=== PATIENT | male | born 1970 | race Two or more races ===

== ENCOUNTER 2019-10-02 20:52 | Inpatient (IN) | payer OTHER ==
[~2019-10-02] VITALS: Ht 167.6 cm; Wt 92.3 kg
[2019-10-02 22:17] LABS: Basophils # (auto) 0 10 ^3/uL (0-0.2); Basophils % (auto) 0.8 % (0.0-2.0); Eosinophils # (auto) 0.2 10 ^3/uL (0-0.8); Eosinophils % (auto) 4.3 % (0.0-7.0); Hematocrit 35.3 % (41.0-53.0); Hemoglobin 11.8 g/dL (13.5-17.5); Lymphocytes # (auto) 1.4 10 ^3/uL (0.4-5.4); Lymphocytes % (auto) 28.4 % (10.0-50.0); Mean Corpuscular Hemoglobin 31.6 pg (28.0-32.0); Mean Corpuscular Hgb Conc. 33.3 g/dL (32.0-36.0); Mean Corpuscular Volume 94.9 fL (80.0-100.0); Monocytes # (auto) 0.8 10 ^3/uL (0-1.3); Monocytes % (auto) 15.7 % (0.0-12.0); Neutrophils # (auto) 2.4 10 ^3/uL (1.6-8.6); Neutrophils % (auto) 50.8 % (37.0-80.0); Nucleated Red Blood Cells % 0.1 %; Platelet Count (auto) 181 10^3/uL (140-450); Red Blood Cells 3.72 10^6/uL (4.5-5.90); Red Cell Distribution Width 15.8 % (11.8-14.3); White Blood Cell 4.8 10^3/uL (4.4-10.8)
[2019-10-02 22:30] LABS: INR 1.4 (0.9-1.15); Partial Thromboplastin Time 29.1 sec (23.64-32.05)
[2019-10-02 22:36] LABS: Alanine Aminotransferase 21 U/L (16-61); Albumin 2.4 g/dL (3.4-5.0); Amylase 48 U/L (25-115); Anion Gap 4 (5-15); Aspartate Aminotransferase 39 U/L (15-37); BUN/Creatinine Ratio 23.3; Blood Urea Nitrogen 14 mg/dL (7-18); Calcium 8.6 mg/dL (8.5-10.1); Carbon Dioxide 30 mmol/L (21-32); Chloride 100 mmol/L (98-107); GFR African American 185 mL/min; GFR Non-African American 153 mL/min; Glucose 118 mg/dL (74-106); Lipase 295 U/L (73-393); Magnesium 2.3 mg/dL (1.6-2.6); Potassium 4.2 mmol/L (3.5-5.1); Sodium 134 mmol/L (136-145)
[2019-10-02 22:42] LABS: Alkaline Phosphatase 193 U/L (45-117); Bilirubin, Total 1.1 mg/dL (0.2-1.0); Total Protein 7.6 g/dL (6.4-8.2)
[2019-10-03] MEDS ORDERED: chlordiazePOXIDE HCL 25 MG CAP PO PRN (04:45)
[2019-10-03] MEDS ORDERED: cloNIDine HCL 0.1 MG TAB PO PRN (04:45)
[2019-10-03] MEDS ORDERED: ONDANSETRON HCL 4 MG/2 ML VIAL IV PRN (04:45)
[2019-10-03] MEDS ORDERED: MORPHINE SULF INJ 2 MG/ML SYRINGE 1ML IV PRN (04:45)
[2019-10-03] MEDS ORDERED: LORazepam 0.5 MG TAB PO PRN (04:45)
[2019-10-03] MEDS ORDERED: ACETAMINOPHEN 325 MG TAB PO PRN (04:45)
[2019-10-03] MEDS ORDERED: HYDROcodone-ACET 5/325MG TAB PO PRN (04:45)
[2019-10-03] MEDS ORDERED: TEMAZEPAM 15 MG CAP PO PRN (04:45)
[2019-10-03] MEDS ORDERED: DOCUSATE SOD 100 MG CAP PO PRN (04:45)
[2019-10-03 05:59] LABS: Basophils # (auto) 0 10 ^3/uL (0-0.2); Basophils % (auto) 0.7 % (0.0-2.0); Eosinophils # (auto) 0.2 10 ^3/uL (0-0.8); Eosinophils % (auto) 4.4 % (0.0-7.0); Hematocrit 34.5 % (41.0-53.0); Hemoglobin 11.4 g/dL (13.5-17.5); Lymphocytes # (auto) 1.5 10 ^3/uL (0.4-5.4); Lymphocytes % (auto) 34.6 % (10.0-50.0); Mean Corpuscular Hemoglobin 31.1 pg (28.0-32.0); Mean Corpuscular Volume 94.4 fL (80.0-100.0); Monocytes # (auto) 0.7 10 ^3/uL (0-1.3); Monocytes % (auto) 15.1 % (0.0-12.0); Neutrophils % (auto) 45.2 % (37.0-80.0); Nucleated Red Blood Cells % 0.1 %; Platelet Count (auto) 165 10^3/uL (140-450); Red Blood Cells 3.65 10^6/uL (4.5-5.90); White Blood Cell 4.4 10^3/uL (4.4-10.8)
[2019-10-03 06:19] LABS: Calcium 8.5 mg/dL (8.5-10.1); Potassium 3.6 mmol/L (3.5-5.1)
[2019-10-03 07:29] LABS: Urine Bacteria NONE SEEN /hpf (None Seen); Urine Blood Negative /uL (Negative); Urine Mucus FEW (None Seen); Urine Specific Gravity 1.025 (1.001-1.035); Urine WBC 1 /hpf (0 - 3)
--- NOTE | 2019-10-03 10:35 | NUR ---
Returned Call Returned call for WEB MARKETING COORDINATOR to obtain report, left message with Wanda.
--- NOTE | 2019-10-03 11:09 | NUR ---
Patient Arrived to Unit Patient arrived to unit from ER. No signs of distress at this time. Respirations even and unlabored. Bed is locked and in lowest position, call light within reach. Patient denies pain at this time, will continue to monitor.
--- NOTE | 2019-10-03 11:10 | NUR ---
Called ER Called ER for report. No answer at this time, will reattempt.
--- NOTE | 2019-10-03 11:46 | NUR ---
Report received Received report from SLIP BRIDGE OPERATOR.
[2019-10-03 14:13] VITALS: BP 139/104
[2019-10-03] MEDS ORDERED: FOLI1TAB6 PO (14:39)
[2019-10-03] MEDS ORDERED: SPIR100T4 PO (14:39)
[2019-10-03] MEDS ORDERED: FURO40TA4 PO (14:39)
[2019-10-03] MEDS ORDERED: PROP10TA57 PO (14:39)
[2019-10-03] MEDS ORDERED: FUROSEMIDE 40 MG/4 ML VIAL IV ONE (15:30)
[2019-10-03] MEDS ORDERED: SPIRONOLACTONE 25 MG TAB PO ONE (15:30)
--- NOTE | 2019-10-03 16:48 | NUR ---
at Station Dr. Sawyer at station discussing patient's plan of care. No new orders at this time.
[2019-10-03 17:00] VITALS: BP 143/100
--- NOTE | 2019-10-03 17:54 | NUR ---
Received call from US Received call from US regarding paracentesis on 10/04. Per Ángela, would like to know if Dr. Sawyer would like to order fluid cultures on drainage post paracentesis since patient had last paracentesis at another facility. Will follow up with Dr. Sawyer.
--- NOTE | 2019-10-03 17:54 | NUR ---
Ronald MAYA Left message with Dr. Rupal Sawyer regarding possible fluid cultures from paracentesis drainage on Saturday. Will await orders.
--- NOTE | 2019-10-03 18:37 | NUR ---
Reassessed BP Blood pressure:146/99
--- NOTE | 2019-10-03 19:13 | NUR ---
Closing Shift Note Report given to Isaias MUIR RN.
[2019-10-03 22:00] VITALS: BP 154/74
[2019-10-04 05:00] VITALS: BP 129/93
[2019-10-04 08:00] VITALS: BP 146/105
--- NOTE | 2019-10-04 08:00 | NUR ---
ASSESSMENT NOTE PT IS ALERT ORIENTED X4, SITTING AT THE SIDE OF TH EBED, AMBULATE NEEDED, PT HAS VERY LARGE DISTENDED ABDOMEN , WITH A SHINY SKIN DUE TO ASCITES, PT IS LOOKING FORWARD TO HAVE THE PARACENTESIS TOMORROW SO HE CAN GO HOME SOON, PAIN 0/10, CONTINUE IN A GOOD SPIRIT, CALL LGHT WITHIN REACH
[2019-10-04 09:00] VITALS: BP 123/94
[2019-10-04] MEDS: SPIRONOLACTONE 25 MG TAB PO SCH (09:48)
[2019-10-04] MEDS: FUROSEMIDE 40 MG/4 ML VIAL IV SCH (09:49)
[2019-10-04] MEDS ORDERED: SPIRONOLACTONE 25 MG TAB PO SCH (10:00)
[2019-10-04 13:00] VITALS: BP 133/98
--- NOTE | 2019-10-04 15:20 | NUR ---
DR CHRISTOPHER AT BED SIDE FOLLOWING UP ON PT, PT DENIES, PAIN, NAUSEA OR VOMITING, DR CHRISTOPHER INFORM PT OF PARACENTESES TOMORROW, PT VERBALIS UNDERSTANDING
[2019-10-04] MEDS ORDERED: PHYTONADIONE(VitK) ORAL Susp 10mg/10ml(1mg/ml) PO ONE (15:30)
[2019-10-04 17:00] VITALS: BP 135/99
[2019-10-04] MEDS ORDERED: Ensure HIGH Protein Chocolate 8oz Bottle PO SCH (18:00)
--- NOTE | 2019-10-04 18:15 | NUR ---
PT IS EATING DINNER, NO DISTRESS NOTED, CONTINUE MONITORING
--- NOTE | 2019-10-04 19:30 | NUR ---
Opening Shift Note Assumed care of patient, awake and alert. A&O x4. Patient sitting on the side of the bed. No S/S of distress/SOB or pain. Safety measures maintained by keeping the bed locked in lowest position, 2 side rails up, personal items and call light within reach. Instructed on POC and to call for assist PRN, will continue to monitor for changes Q1hr and PRN.
[2019-10-04 21:00] VITALS: BP 133/96
--- NOTE | 2019-10-05 | NUR ---
NPO at midnight
[2019-10-05 04:27] VITALS: BP 133/90
[2019-10-05 06:20] LABS: Basophils # (auto) 0 10 ^3/uL (0-0.2); Basophils % (auto) 0.4 % (0.0-2.0); Eosinophils # (auto) 0.1 10 ^3/uL (0-0.8); Eosinophils % (auto) 2.8 % (0.0-7.0); Hematocrit 33.4 % (41.0-53.0); Hemoglobin 10.8 g/dL (13.5-17.5); Lymphocytes # (auto) 1.2 10 ^3/uL (0.4-5.4); Lymphocytes % (auto) 25.8 % (10.0-50.0); Mean Corpuscular Hemoglobin 30.6 pg (28.0-32.0); Mean Corpuscular Hgb Conc. 32.5 g/dL (32.0-36.0); Mean Corpuscular Volume 94.3 fL (80.0-100.0); Monocytes # (auto) 0.8 10 ^3/uL (0-1.3); Monocytes % (auto) 16.1 % (0.0-12.0); Neutrophils # (auto) 2.7 10 ^3/uL (1.6-8.6); Neutrophils % (auto) 54.9 % (37.0-80.0); Nucleated Red Blood Cells % 0.1 %; Platelet Count (auto) 146 10^3/uL (140-450); Red Blood Cells 3.54 10^6/uL (4.5-5.90); Red Cell Distribution Width 15.9 % (11.8-14.3); White Blood Cell 4.8 10^3/uL (4.4-10.8)
[2019-10-05 06:32] LABS: INR 1.35 (0.9-1.15)
[2019-10-05 06:38] LABS: Calcium 8.4 mg/dL (8.5-10.1)
[2019-10-05 08:00] VITALS: BP 123/94
--- NOTE | 2019-10-05 08:00 | NUR ---
ASSESSMENT NOTE PT IS ALERT ORIENTED X4, SITTING AT THE SIDE OF THE BED, AMBULATE NEEDED, PT HAS VERY LARGE DISTENDED ABDOMEN , WITH A SHINY SKIN DUE TO ASCITES, PT IS AWARE OF THE PARACENTESIS TODAY, PAIN 0/10, , CALL LIGHT WITHIN REACH
[2019-10-05 09:00] VITALS: BP 137/88
[2019-10-05] MEDS: SPIRONOLACTONE 25 MG TAB PO SCH (09:27)
[2019-10-05] MEDS: FUROSEMIDE 40 MG/4 ML VIAL IV SCH (09:27)
[2019-10-05 09:31] LABS: Hepatitis B Surface Antibody Negative
[2019-10-05 10:07] LABS: Hepatitis A Total Antibody Positive
--- NOTE | 2019-10-05 10:15 | NUR ---
PT IN ULTRASOUND FOR A PARACENTESIS BY DR JOEL. VS 134/40-146-15-96% 1030: 134/34-992-81-98%. SPECIMEN SENT TO PATHOLOGY.
[2019-10-05 10:42] LABS: Hepatitis B Surface Antigen Negative (Negative)
[2019-10-05 10:43] LABS: Hepatitis C Antibody Negative (Negative)
[2019-10-05 10:44] LABS: Hepatitis B Core Total AB Negative
[2019-10-05] MEDS ORDERED: ALBUMIN 25% 50 ML IV ONE ×2 (11:15)
--- NOTE | 2019-10-05 11:26 | NUR ---
120/[id number]%.13,700 ML OF FLUID REMOVED. PT TOLERATED WELL. ALBUMIN ORDERED.
--- NOTE | 2019-10-05 11:45 | NUR ---
PT IS BACK TO HIS ROOM, APPEAR TIRED, WARM TO TOUCH, AND TACHYCARDIA, ABDOMEN ALMOST BACK TO NORMAL GIRTH, PT HAS DRY HEAVES, NOTICE THAT HIS VICE WEEK, STATED I LOST MY VOICE> OXYGEN APPLIED FOR COMFORT, FOLLOWED BY ZOFRAN IV PUSH, PT IS SITTING AT THE SIDE OF THE BED, REFUSED TO LAY DOWN, CALL LIGHT WITHIN REACH
--- NOTE | 2019-10-05 12:15 | NUR ---
DR CHRISTOPHER AT BED SIDE WITH DISCHARGE HOME INSTRUCTION, PT WILL KEEP HIS SCHEDULE APPOINTMENT WITH DR DEMPSEY IN ONE MONTH, AND HE NEED TO FOLLOW UP WITH DR ALEJANDRO GARRETT IN ONE WEEK REGARDING PARACENTESIS CULTURE, PT VERBALIS UNDERSTANDING
[2019-10-05 13:00] VITALS: BP 115/76
[2019-10-05 14:37] VITALS: BP 137/88
--- NOTE | 2019-10-05 14:55 | NUR ---
ALL DISCHARGE INSTRUCTION GIVEN TO PT VERBALIS UNDERSTANDING, ALONE WITH DR Rupal GARRETT APPOINTMENT, HOME MEDICATIONS RETURN TO PT, PT STATED THAT HIS MOM LISA IS TAKING CARE OF HIM AT HOME, AND HE IS GOING TO GIVE HER A CALL TO PICK HIM UP
--- NOTE | 2019-10-05 16:25 | NUR ---
Assessment Patient is a 49-year-old male who is alert and oriented. Prior to admission patient lived with family and function independently. Per patient he can care for his own ADLs. Per patient he does not need any medical equipment now. Per patient he will return to his prior living arrangements post discharge and family will transport him home. Advised patient there is a social service consult for alcohol abuse. Offered patient resource for alcohol rehab. Patient refused resource. Patient stated he does not consume alcohol anymore and does not feel the need to go to a rehabilitation. Patient verbalize understanding d/c plan. Addendum: 10/05/19 at 1625 by JIMENA RIDER Amended: Links added.
[2019-10-05 16:48] VITALS: BP 114/59
--- NOTE | 2019-10-05 17:00 | NUR ---
Discharge instructions given as ordered. Encourage to follow up with PMD as instructed. All questions and concerns addressed. Patient verbalized understanding. Medication reconciliation form completed and copy given to patient . IV removed with catheter intact, pressure dressing applied, wilkinson catheter removed. Patient taken to vehicle via wheelchair with all personal belongings, accompanied by staff and family member. No distress noted at time of departure.
== END 2019-10-05 17:00 | disposition home or self-care (01) | DRG 280 ==
LOC: ER 20:52 → EDBD 20:52 → OVERFLOW 20:53 → WEST WING 10-03 11:09
PROVIDERS: ADMIT Hospitalist; ATTEND Internal Medicine
PROC: 0W9G3ZZ Drainage of Peritoneal Cavity, Percutaneous Approach (ICD-10-PCS; principal; 2019-10-03)
DX: K70.31 Alcoholic cirrhosis of liver with ascites (principal); K72.10 Chronic hepatic failure without coma; K76.6 Portal hypertension; D63.8 Anemia in other chronic diseases classified elsewhere; D68.9 Coagulation defect, unspecified; E87.1 Hypo-osmolality and hyponatremia; J98.11 Atelectasis; E44.0 Moderate protein-calorie malnutrition; F10.239 Alcohol dependence with withdrawal, unspecified; Z68.32 Body mass index [BMI] 32.0-32.9, adult; R14.0 Abdominal distension (gaseous); E11.9 Type 2 diabetes mellitus without complications; Y90.0 Blood alcohol level of less than 20 mg/100 ml
CPT/HCPCS: 10022; 36415; 71250; 74176; 76700; 76942; 80048; 80053; 80061; 80320; 81001; 82140; 82150; 83036; 83605; 83690; 83735; 83880; 83986; 84484; 85025; 85610; 85730; 86704; 86706; 86708; 86803; 87205; 87340; 89051; 93005; 93970; G0378; J2405

== ENCOUNTER 2019-10-21 22:17 | Inpatient (IN) | payer OTHER ==
[~2019-10-21] VITALS: Ht 177.8 cm; Wt 79.0 kg
[~2019-10-21 22:17] MED LIST: FOLI1TAB6 PO; FURO40TA4 PO; PROP10TA57 PO; SPIR100T4 PO
[2019-10-21 23:16] LABS: Basophils # (auto) 0.1 10 ^3/uL (0-0.2); Basophils % (auto) 0.9 % (0.0-2.0); Eosinophils # (auto) 0.2 10 ^3/uL (0-0.8); Eosinophils % (auto) 3.6 % (0.0-7.0); Hematocrit 37.3 % (41.0-53.0); Hemoglobin 12.1 g/dL (13.5-17.5); Lymphocytes # (auto) 1.8 10 ^3/uL (0.4-5.4); Lymphocytes % (auto) 32.2 % (10.0-50.0); Mean Corpuscular Hemoglobin 30.6 pg (28.0-32.0); Mean Corpuscular Hgb Conc. 32.4 g/dL (32.0-36.0); Mean Corpuscular Volume 94.4 fL (80.0-100.0); Monocytes # (auto) 0.7 10 ^3/uL (0-1.3); Neutrophils # (auto) 2.8 10 ^3/uL (1.6-8.6); Neutrophils % (auto) 51.3 % (37.0-80.0); Nucleated Red Blood Cells % 0.1 %; Platelet Count (auto) 204 10^3/uL (140-450); Red Blood Cells 3.95 10^6/uL (4.5-5.90); White Blood Cell 5.5 10^3/uL (4.4-10.8)
[2019-10-21 23:38] LABS: Albumin 2.2 g/dL (3.4-5.0); BUN/Creatinine Ratio 24.2; Calcium 8.5 mg/dL (8.5-10.1); Potassium 4.4 mmol/L (3.5-5.1)
[2019-10-21 23:41] LABS: Bilirubin, Total 0.8 mg/dL (0.2-1.0); Total Protein 6.9 g/dL (6.4-8.2)
[2019-10-21 23:59] LABS: Urine Amorphous Crystal FEW /hpf (None Seen); Urine Bacteria FEW /hpf (None Seen); Urine Blood Negative /uL (Negative); Urine Mucus FEW (None Seen); Urine Specific Gravity 1.032 (1.001-1.035); Urine WBC 5 /hpf (0 - 3)
[2019-10-22] MEDS ORDERED: cefTRIAXone 1GM/50ML D5W 50 ML IV ONE (02:45)
[2019-10-22 03:32] LABS: INR 1.22 (0.9-1.15); Partial Thromboplastin Time 28.9 sec (23.0-31.2)
[2019-10-22] MEDS ORDERED: NITROGLYCERIN 0.4 MG SL TAB SL PRN (05:30)
[2019-10-22] MEDS ORDERED: MORPHINE SULF INJ 2 MG/ML SYRINGE 1ML IV PRN (05:30)
[2019-10-22] MEDS ORDERED: ONDANSETRON HCL 4 MG/2 ML VIAL IV PRN (05:30)
[2019-10-22] MEDS ORDERED: TEMAZEPAM 15 MG CAP PO PRN (05:30)
[2019-10-22] MEDS: PROPRANOLOL HCL 20 MG TAB PO SCH ×2 (09:30→22:56)
[2019-10-22] MEDS: FAMOTIDINE 20 MG TAB PO SCH ×2 (09:30→22:55)
[2019-10-22] MEDS: SPIRONOLACTONE 25 MG TAB PO SCH (09:30)
[2019-10-22] MEDS: FUROSEMIDE 40 MG TAB PO SCH (09:30)
[2019-10-22] MEDS: FOLIC ACID 1 MG TAB PO SCH (09:30)
[2019-10-22] MEDS ORDERED: ENOXAPARIN SOD 60 MG/0.6 ML SYRINGE SC ONE (16:30)
[2019-10-22 18:20] VITALS: BP 97/67
[2019-10-22 20:00] VITALS: BP 126/88
[2019-10-22] MEDS: cefTRIAXone 1GM/50ML D5W 50 ML IV SCH (20:42)
--- NOTE | 2019-10-22 21:00 | NUR ---
pt awake alert ambulatory;denies pain;call light in reach.
[2019-10-22 22:08] VITALS: BP 102/62
[2019-10-23 05:38] VITALS: BP 91/54
--- NOTE | 2019-10-23 06:14 | NUR ---
PT RESTED WELL THROUGHOUT THE NIGHT;NO DISTRESS OR PAIN VERBALIZED. HAS EXPRESSED A DESIRE TO GO HOME TODAY.
[2019-10-23 06:22] LABS: Basophils # (auto) 0 10 ^3/uL (0-0.2); Basophils % (auto) 0.6 % (0.0-2.0); Eosinophils # (auto) 0.2 10 ^3/uL (0-0.8); Eosinophils % (auto) 3.4 % (0.0-7.0); Hematocrit 34.2 % (41.0-53.0); Hemoglobin 11.2 g/dL (13.5-17.5); Lymphocytes # (auto) 1.9 10 ^3/uL (0.4-5.4); Lymphocytes % (auto) 34.6 % (10.0-50.0); Mean Corpuscular Hgb Conc. 32.8 g/dL (32.0-36.0); Mean Corpuscular Volume 94.4 fL (80.0-100.0); Monocytes # (auto) 0.6 10 ^3/uL (0-1.3); Monocytes % (auto) 10.7 % (0.0-12.0); Neutrophils # (auto) 2.8 10 ^3/uL (1.6-8.6); Neutrophils % (auto) 50.7 % (37.0-80.0); Platelet Count (auto) 163 10^3/uL (140-450); Red Blood Cells 3.62 10^6/uL (4.5-5.90); White Blood Cell 5.5 10^3/uL (4.4-10.8)
[2019-10-23 06:24] LABS: Albumin 1.4 g/dL (3.4-5.0); Calcium 7.5 mg/dL (8.5-10.1); Potassium 4.2 mmol/L (3.5-5.1)
[2019-10-23 06:27] LABS: Bilirubin, Total 0.7 mg/dL (0.2-1.0)
[2019-10-23 08:00] VITALS: BP 92/55
[2019-10-23 09:00] VITALS: BP 92/55
[2019-10-23] MEDS: FOLIC ACID 1 MG TAB PO SCH (09:43)
[2019-10-23] MEDS: FUROSEMIDE 40 MG TAB PO SCH (09:47)
[2019-10-23] MEDS: SPIRONOLACTONE 25 MG TAB PO SCH (09:47)
[2019-10-23] MEDS: FAMOTIDINE 20 MG TAB PO SCH ×2 (09:48→21:56)
[2019-10-23] MEDS: PROPRANOLOL HCL 20 MG TAB PO SCH ×2 (09:48→21:53)
[2019-10-23 13:00] VITALS: BP 97/66
[2019-10-23 17:00] VITALS: BP 102/66
[2019-10-23] MEDS ORDERED: ALBUMIN 25% 100 ML IV ONE (17:30)
[2019-10-23] MEDS: traMADol HCL 50 MG TAB PO PRN (18:05)
--- NOTE | 2019-10-23 19:45 | NUR ---
Opening Shift Note Assumed care of patient, awake and alert. No S/S of distress/SOB or pain. Instructed on POC and to call for assist PRN, will continue to monitor for changes Q1hr and PRN.
[2019-10-23] MEDS: cefTRIAXone 1GM/50ML D5W 50 ML IV SCH (21:56)
[2019-10-23 22:36] VITALS: BP 95/58
--- NOTE | 2019-10-24 01:12 | NUR ---
RECEIVED REPORT FROM NOW RN ASSUMED CARE OF PATIENT. NO S/S OF DISTRESS. CALL LIGHT WITHIN REACH. FALL AND SAFETY PRECAUTIONS IN PLACE. WILL CONTINUE TO MONITOR Q1H AND PRN.
--- NOTE | 2019-10-24 01:24 | NUR ---
GAVE REPORT TO NURSE SELBY TO RESUME CARE OF PATIENT
[2019-10-24 05:14] LABS: Basophils # (auto) 0 10 ^3/uL (0-0.2); Basophils % (auto) 0.7 % (0.0-2.0); Eosinophils # (auto) 0.4 10 ^3/uL (0-0.8); Eosinophils % (auto) 7.5 % (0.0-7.0); Hematocrit 36.3 % (41.0-53.0); Hemoglobin 11.7 g/dL (13.5-17.5); Lymphocytes # (auto) 1.8 10 ^3/uL (0.4-5.4); Lymphocytes % (auto) 30.5 % (10.0-50.0); Mean Corpuscular Hemoglobin 30.7 pg (28.0-32.0); Mean Corpuscular Hgb Conc. 32.4 g/dL (32.0-36.0); Mean Corpuscular Volume 94.8 fL (80.0-100.0); Monocytes # (auto) 0.6 10 ^3/uL (0-1.3); Monocytes % (auto) 10.2 % (0.0-12.0); Neutrophils % (auto) 51.1 % (37.0-80.0); Platelet Count (auto) 167 10^3/uL (140-450); Red Blood Cells 3.82 10^6/uL (4.5-5.90); Red Cell Distribution Width 16.1 % (11.8-14.3); White Blood Cell 5.8 10^3/uL (4.4-10.8)
[2019-10-24 05:27] VITALS: BP 99/57
[2019-10-24 05:30] LABS: Calcium 7.8 mg/dL (8.5-10.1); Potassium 4.2 mmol/L (3.5-5.1)
[2019-10-24 05:32] LABS: BUN/Creatinine Ratio 18.2
[2019-10-24] MEDS: traMADol HCL 50 MG TAB PO PRN ×2 (05:41→13:55)
[2019-10-24 08:00] VITALS: BP 98/61
[2019-10-24 09:00] VITALS: BP 98/61
[2019-10-24] MEDS: SPIRONOLACTONE 25 MG TAB PO SCH (09:07)
[2019-10-24] MEDS: PROPRANOLOL HCL 20 MG TAB PO SCH (09:08)
[2019-10-24] MEDS: FOLIC ACID 1 MG TAB PO SCH (09:16)
[2019-10-24] MEDS: FAMOTIDINE 20 MG TAB PO SCH (09:17)
[2019-10-24] MEDS: FUROSEMIDE 40 MG TAB PO SCH (09:17)
[2019-10-24 13:00] VITALS: BP 101/66
[2019-10-24 15:08] VITALS: BP 101/66
[2019-10-24 17:00] VITALS: BP 102/65
--- NOTE | 2019-10-24 18:36 | NUR ---
Discharge instructions given as ordered. Encourage to follow up with PMD as instructed. All questions and concerns addressed. Patient verbalized understanding. Medication reconciliation form completed and copy given to patient. Home medications held in Pharmacy returned to patient. IV removed with catheter intact, pressure dressing applied. Telemetry unit returned to ICU. Patient taken to vehicle via wheelchair with all personal belongings, accompanied by staff and family member. No distress noted at time of departure.
== END 2019-10-24 18:30 | disposition home or self-care (01) | DRG 280 ==
LOC: ER 22:17 → EDBD 22:17 → TELE 22:18 → TELE-WESTW 10-22 17:58
PROVIDERS: ADMIT Nurse Practitioner; ATTEND Family Medicine
PROC: 0W9G3ZZ Drainage of Peritoneal Cavity, Percutaneous Approach (ICD-10-PCS; principal; 2019-10-22)
DX: K70.31 Alcoholic cirrhosis of liver with ascites (principal); R14.0 Abdominal distension (gaseous); N39.0 Urinary tract infection, site not specified; K72.00 Acute and subacute hepatic failure without coma; E11.9 Type 2 diabetes mellitus without complications; Z68.25 Body mass index [BMI] 25.0-25.9, adult; I50.9 Heart failure, unspecified; Z83.3 Family history of diabetes mellitus; E44.0 Moderate protein-calorie malnutrition
CPT/HCPCS: 10022; 36415; 71250; 74176; 76942; 80048; 80053; 81001; 85025; 85610; 85730; 87081; 93005; G0378; J0696; P9047

== ENCOUNTER 2020-01-13 21:14 | Inpatient (IN) | payer OTHER ==
[~2020-01-13] VITALS: Ht 177.8 cm; Wt 75.4 kg
[2020-01-13 22:34] LABS: Basophils # (auto) 0.1 10 ^3/uL (0-0.2); Basophils % (auto) 1.1 % (0.0-2.0); Eosinophils # (auto) 0.2 10 ^3/uL (0-0.8); Eosinophils % (auto) 3.8 % (0.0-7.0); Hematocrit 36.9 % (41.0-53.0); Hemoglobin 12.3 g/dL (13.5-17.5); Lymphocytes # (auto) 1.4 10 ^3/uL (0.4-5.4); Lymphocytes % (auto) 25.7 % (10.0-50.0); Mean Corpuscular Hemoglobin 31.8 pg (28.0-32.0); Mean Corpuscular Hgb Conc. 33.2 g/dL (32.0-36.0); Mean Corpuscular Volume 95.8 fL (80.0-100.0); Monocytes # (auto) 0.7 10 ^3/uL (0-1.3); Monocytes % (auto) 12.2 % (0.0-12.0); Neutrophils # (auto) 3.2 10 ^3/uL (1.6-8.6); Neutrophils % (auto) 57.2 % (37.0-80.0); Platelet Count (auto) 171 10^3/uL (140-450); Red Blood Cells 3.86 10^6/uL (4.5-5.90); Red Cell Distribution Width 15.5 % (11.8-14.3); White Blood Cell 5.6 10^3/uL (4.4-10.8)
[2020-01-13 22:51] LABS: INR 1.26 (0.9-1.15); Partial Thromboplastin Time 27.3 sec (23.0-31.2)
[2020-01-13 22:54] LABS: Alanine Aminotransferase 21 U/L (16-61); Albumin 2.3 g/dL (3.4-5.0); Anion Gap 7 (5-15); Aspartate Aminotransferase 37 U/L (15-37); BUN/Creatinine Ratio 17.1; Blood Urea Nitrogen 13 mg/dL (7-18); Calcium 7.7 mg/dL (8.5-10.1); Carbon Dioxide 27 mmol/L (21-32); Chloride 102 mmol/L (98-107); GFR African American 141 mL/min; GFR Non-African American 116 mL/min; Glucose 114 mg/dL (74-106); Potassium 4.2 mmol/L (3.5-5.1); Sodium 136 mmol/L (136-145)
[2020-01-13 23:01] LABS: Alkaline Phosphatase 195 U/L (45-117); Bilirubin, Total 0.8 mg/dL (0.2-1.0); Total Protein 7.2 g/dL (6.4-8.2)
[2020-01-14] VITALS (7 sets, daily range): BP systolic 96–144; BP diastolic 55–101
[2020-01-14] MEDS ORDERED: ONDANSETRON HCL 4 MG/2 ML VIAL IV PRN (00:45)
[2020-01-14] MEDS ORDERED: TEMAZEPAM 15 MG CAP PO PRN (00:45)
[2020-01-14 01:20] LABS: Urine Bacteria FEW /hpf (None Seen); Urine Blood Negative /uL (Negative); Urine Hyaline Cast FEW /lpf (0 - 2); Urine Mucus FEW (None Seen); Urine Specific Gravity 1.029 (1.001-1.035); Urine WBC 1 /hpf (0 - 3)
--- NOTE | 2020-01-14 01:35 | NUR ---
MS admit from ER KELTON BENZ admitted to tele/MS after SBAR received. Patient oriented to Domitila Palacios, primary RN, unit, room, bed, and unit policies regarding patient care and visiting hours. Patient weighed by bedscale and encouraged to call if they need something. All questions and concerns addressed, patient verbalized understanding. Note:
--- NOTE | 2020-01-14 01:39 | NUR ---
JIM HAMILTON BECAUSE PT'SADMITTING BLOOD PRESSURE IS 144/101. PT DENIES PAIN, AND IS RESTING IN HIS BED WATCHING TELEVISION.
--- NOTE | 2020-01-14 01:45 | NUR ---
RECEIVE CALL BACK FROM HOSPITALIST TO FOLLOW PARAMETERS TO NOT GIVE B/P MEDS UNDER SYSTOLIC OF 150/; HOWEVER ER HAD MISTAKENLY DISCHARGED PT FROM THE SYSTEM SO THERE WERE NO B/P MEDS ORDERED TO CHOOSE FROM.
[2020-01-14] MEDS ORDERED: GLIP5TAB12 PO (04:04)
[2020-01-14] MEDS ORDERED: ATOR20TA PO (04:04)
--- NOTE | 2020-01-14 07:00 | NUR ---
OPENING SHIFT NOTE RECEIVED REPORT ON THE PATIENT. AWAKE LYING IN BED. PATIENT SHOWS NO SIGNS OF DISTRESS AT THIS TIME. BED IN LOWEST POSITION, SIDE RAILS UP X2, AND CALL LIGHT IS WITHIN REACH.
--- NOTE | 2020-01-14 07:46 | NUR ---
PT RESTED WELL THROUGHOUT THE NIGHT WITH NO C/0 PAIN. WILL CONTINUE TO MONITOR.
--- NOTE | 2020-01-14 10:03 | NUR ---
DR TYLER AT BEDSIDE. NEW ORDERS RECEIVED
[2020-01-14] MEDS: SPIRONOLACTONE 25 MG TAB PO SCH (11:02)
[2020-01-14] MEDS: FOLIC ACID 1 MG TAB PO SCH (11:02)
[2020-01-14] MEDS: FUROSEMIDE 40 MG TAB PO SCH (11:03)
[2020-01-14] MEDS: PROPRANOLOL HCL 20 MG TAB PO SCH ×2 (11:03→22:00)
[2020-01-14] MEDS: FAMOTIDINE 20 MG TAB PO SCH ×2 (11:03→22:02)
--- NOTE | 2020-01-14 12:36 | NUR ---
PAGED DR TYLER REGARDING AN ALBUMIN ORDER AFTER THE PARACENTESIS. AWAITING A CALL BACK.
--- NOTE | 2020-01-14 15:15 | NUR ---
PAGED DR TYLER FOR AN ALBUMIN ORDER BECAUSE THE PATIENT HAD 15.6L REMOVED DURING PARACENTESIS. NEW ORDERS RECEIVED.
--- NOTE | 2020-01-14 15:35 | NUR ---
POST PARACENTESIS PATIENT TAKEN BACK TO ROOM 285B VIA WHEELCHAIR, S/P PARACENTESIS. REMOVED 15.6LITERS. PATIENT TOLERATED WELL VITAL SIGNS STABLE. PLEASE REFER TO PAPER CHART FOR VITAL SIGNS. CALL LIGHT IN REACH, BED IN LOW POSITION. INFORMED PRIMARY NURSE OF PATIENT ARRIVAL BACK TO ROOM AND TOTAL FLUID REMOVED. PER PRIMARY NURSE SHE SPOKE TO DR TYLER AND OBTAINED ORDERS FOR ALBUMIN.
[2020-01-14] MEDS: ALBUMIN 25% 100 ML IV SCH ×2 (16:49→23:45)
[2020-01-15 05:00] VITALS: BP 99/61
[2020-01-15 08:22] VITALS: BP 90/53
[2020-01-15] MEDS: ALBUMIN 25% 100 ML IV SCH (08:31)
[2020-01-15] MEDS: SPIRONOLACTONE 25 MG TAB PO SCH (10:00)
[2020-01-15] MEDS: PROPRANOLOL HCL 20 MG TAB PO SCH (10:00)
[2020-01-15] MEDS: FUROSEMIDE 40 MG TAB PO SCH (10:00)
[2020-01-15] MEDS: FOLIC ACID 1 MG TAB PO SCH (10:32)
[2020-01-15] MEDS: FAMOTIDINE 20 MG TAB PO SCH (10:32)
[2020-01-15 12:25] VITALS: BP 103/77
[2020-01-15 15:18] VITALS: BP 103/77
[2020-01-15 17:00] VITALS: BP 105/68
--- NOTE | 2020-01-15 18:15 | NUR ---
Discharge instructions given as ordered. Encourage to follow up with PMD as instructed. All questions and concerns addressed. Patient verbalized understanding. Medication reconciliation form completed and copy given to patient. Home medications held in Pharmacy returned to patient. IV removed with catheter intact, pressure dressing applied. Patient taken to vehicle via wheelchair with all personal belongings, accompanied by staff and family member. No distress noted at time of departure.
== END 2020-01-15 18:15 | disposition home or self-care (01) | DRG 280 ==
LOC: ER 21:14 → EDBD 21:14 → WEST WING 21:15 → ER 01-14 01:19
PROVIDERS: ADMIT Nurse Practitioner; ATTEND Internal Medicine Nephrology
PROC: 0W9G3ZZ Drainage of Peritoneal Cavity, Percutaneous Approach (ICD-10-PCS; principal; 2020-01-14)
DX: K70.31 Alcoholic cirrhosis of liver with ascites (principal); E88.09 Other disorders of plasma-protein metabolism, not elsewhere classified; K80.20 Calculus of gallbladder without cholecystitis without obstruction; D63.8 Anemia in other chronic diseases classified elsewhere; I50.9 Heart failure, unspecified; E11.9 Type 2 diabetes mellitus without complications; N20.0 Calculus of kidney; Z83.3 Family history of diabetes mellitus
CPT/HCPCS: 10022; 36415; 71045; 74176; 76705; 76942; 80053; 81001; 84484; 85025; 85610; 85730; 87081; 96365; G0378; P9047

== ENCOUNTER → 2020-03-30 | Outpatient (CLI) | payer OTHER ==
[2020-03-30] VITALS (7 sets, daily range): BP systolic 106–119; BP diastolic 68–83
[~2020-03-30] MED LIST changes: +ALBUMIN 25% 100 ML IV ONE; +ATOR20TA PO; +GLIP5TAB12 PO
[2020-03-30 14:10] LABS: Basophils # (auto) 0 10 ^3/uL (0-0.2); Basophils % (auto) 0.7 % (0.0-2.0); Eosinophils # (auto) 0.2 10 ^3/uL (0-0.8); Hematocrit 36.5 % (41.0-53.0); Hemoglobin 12.6 g/dL (13.5-17.5); Lymphocytes # (auto) 1.3 10 ^3/uL (0.4-5.4); Lymphocytes % (auto) 29.1 % (10.0-50.0); Mean Corpuscular Hemoglobin 32.3 pg (28.0-32.0); Mean Corpuscular Hgb Conc. 34.5 g/dL (32.0-36.0); Mean Corpuscular Volume 93.6 fL (80.0-100.0); Monocytes # (auto) 0.5 10 ^3/uL (0-1.3); Monocytes % (auto) 10.7 % (0.0-12.0); Neutrophils # (auto) 2.5 10 ^3/uL (1.6-8.6); Neutrophils % (auto) 55.5 % (37.0-80.0); Nucleated Red Blood Cells % 0.1 %; Platelet Count (auto) 190 10^3/uL (140-450); Red Cell Distribution Width 14.2 % (11.8-14.3); White Blood Cell 4.6 10^3/uL (4.4-10.8)
[2020-03-30 14:30] LABS: INR 1.18 (0.9-1.15); Partial Thromboplastin Time 29.9 sec (23.0-31.2)
== END | disposition home or self-care (01) ==
LOC: US 12:49
DX: R18.8 Other ascites (principal); I50.9 Heart failure, unspecified; Z98.890 Other specified postprocedural states; Z79.899 Other long term (current) drug therapy
CPT/HCPCS: 36415; 49083; 76700; 85025; 85610; 85730; C1729; 10022; 76942

== ENCOUNTER → 2020-04-20 | Outpatient (CLI) | payer OTHER ==
[2020-04-20 10:29] LABS: Basophils # (auto) 0.1 10 ^3/uL (0-0.2); Basophils % (auto) 1.1 % (0.0-2.0); Eosinophils # (auto) 0.1 10 ^3/uL (0-0.8); Eosinophils % (auto) 2.6 % (0.0-7.0); Hematocrit 36.2 % (41.0-53.0); Hemoglobin 12.2 g/dL (13.5-17.5); Lymphocytes # (auto) 1.4 10 ^3/uL (0.4-5.4); Lymphocytes % (auto) 31.7 % (10.0-50.0); Mean Corpuscular Hemoglobin 31.5 pg (28.0-32.0); Mean Corpuscular Hgb Conc. 33.6 g/dL (32.0-36.0); Mean Corpuscular Volume 93.8 fL (80.0-100.0); Monocytes # (auto) 0.6 10 ^3/uL (0-1.3); Monocytes % (auto) 12.8 % (0.0-12.0); Neutrophils # (auto) 2.3 10 ^3/uL (1.6-8.6); Neutrophils % (auto) 51.8 % (37.0-80.0); Nucleated Red Blood Cells % 0.1 %; Platelet Count (auto) 159 10^3/uL (140-450); Red Blood Cells 3.87 10^6/uL (4.5-5.90); Red Cell Distribution Width 13.6 % (11.8-14.3); White Blood Cell 4.4 10^3/uL (4.4-10.8)
[2020-04-20 10:43] LABS: INR 1.18 (0.9-1.15); Partial Thromboplastin Time 29.6 sec (23.0-31.2)
== END | disposition home or self-care (01) ==
LOC: XYW 09:21
DX: R18.8 Other ascites (principal); I50.9 Heart failure, unspecified; Z98.890 Other specified postprocedural states; Z79.899 Other long term (current) drug therapy
CPT/HCPCS: 36415; 49083; 85025; 85610; 85730; C1729; P9047; 10022; 76700; 76942

== ENCOUNTER → 2020-05-10 | Outpatient (CLI) | payer OTHER ==
[2020-05-09 08:43] LABS: Basophils # (auto) 0 10 ^3/uL (0-0.2); Basophils % (auto) 0.6 % (0.0-2.0); Eosinophils # (auto) 0.2 10 ^3/uL (0-0.8); Hematocrit 36.5 % (41.0-53.0); Hemoglobin 12.4 g/dL (13.5-17.5); Lymphocytes # (auto) 1.6 10 ^3/uL (0.4-5.4); Lymphocytes % (auto) 31.4 % (10.0-50.0); Mean Corpuscular Hemoglobin 31.5 pg (28.0-32.0); Mean Corpuscular Hgb Conc. 34.1 g/dL (32.0-36.0); Mean Corpuscular Volume 92.5 fL (80.0-100.0); Monocytes # (auto) 0.5 10 ^3/uL (0-1.3); Monocytes % (auto) 10.5 % (0.0-12.0); Neutrophils # (auto) 2.8 10 ^3/uL (1.6-8.6); Neutrophils % (auto) 53.5 % (37.0-80.0); Nucleated Red Blood Cells % 0.1 %; Platelet Count (auto) 155 10^3/uL (140-450); Red Blood Cells 3.94 10^6/uL (4.5-5.90); Red Cell Distribution Width 13.4 % (11.8-14.3); White Blood Cell 5.2 10^3/uL (4.4-10.8)
[2020-05-09 09:05] LABS: INR 1.2 (0.9-1.15); Partial Thromboplastin Time 30.1 sec (23.0-31.2)
== END | disposition home or self-care (01) ==
LOC: US 09:12
DX: R18.8 Other ascites (principal); I50.9 Heart failure, unspecified; Z98.890 Other specified postprocedural states; Z79.899 Other long term (current) drug therapy
CPT/HCPCS: 36415; 49083; 85025; 85610; 85730; C1729; P9047; 10022; 76942

== ENCOUNTER → 2020-06-06 | Outpatient (CLI) | payer OTHER ==
[~2020-06-06] MED LIST changes: -ALBUMIN 25% 100 ML IV ONE
[2020-06-06 13:24] LABS: Basophils # (auto) 0 10 ^3/uL (0-0.2); Basophils % (auto) 0.5 % (0.0-2.0); Eosinophils # (auto) 0.2 10 ^3/uL (0-0.8); Eosinophils % (auto) 3.5 % (0.0-7.0); Hemoglobin 11.7 g/dL (13.5-17.5); Lymphocytes # (auto) 1.8 10 ^3/uL (0.4-5.4); Lymphocytes % (auto) 34.3 % (10.0-50.0); Mean Corpuscular Hemoglobin 31.3 pg (28.0-32.0); Mean Corpuscular Hgb Conc. 34.3 g/dL (32.0-36.0); Mean Corpuscular Volume 91.4 fL (80.0-100.0); Monocytes # (auto) 0.6 10 ^3/uL (0-1.3); Monocytes % (auto) 11.4 % (0.0-12.0); Neutrophils # (auto) 2.7 10 ^3/uL (1.6-8.6); Neutrophils % (auto) 50.3 % (37.0-80.0); Nucleated Red Blood Cells % 0.1 %; Platelet Count (auto) 161 10^3/uL (140-450); Red Blood Cells 3.72 10^6/uL (4.5-5.90); Red Cell Distribution Width 14.1 % (11.8-14.3); White Blood Cell 5.3 10^3/uL (4.4-10.8)
[2020-06-06 13:41] LABS: INR 1.18 (0.9-1.15)
== END | disposition home or self-care (01) ==
LOC: LAB 13:06
DX: K70.31 Alcoholic cirrhosis of liver with ascites (principal)
CPT/HCPCS: 36415; 85025; 85610

== ENCOUNTER → 2020-06-07 | Outpatient (CLI) | payer OTHER | END | disposition home or self-care (01) | LOC: US 08:24 | DX: R18.8 Other ascites (principal); I50.9 Heart failure, unspecified; F99 Mental disorder, not otherwise specified; Z79.899 Other long term (current) drug therapy; Z98.890 Other specified postprocedural states | CPT/HCPCS: 49083; 76700; C1729; 10022; 76942 ==

== ENCOUNTER → 2020-07-04 | Outpatient (CLI) | payer OTHER ==
[2020-07-04 10:46] LABS: Basophils # (auto) 0 10 ^3/uL (0-0.2); Basophils % (auto) 0.4 % (0.0-2.0); Eosinophils # (auto) 0.2 10 ^3/uL (0-0.8); Eosinophils % (auto) 3.2 % (0.0-7.0); Hematocrit 36.4 % (41.0-53.0); Hemoglobin 12.3 g/dL (13.5-17.5); Lymphocytes # (auto) 1.6 10 ^3/uL (0.4-5.4); Lymphocytes % (auto) 30.1 % (10.0-50.0); Mean Corpuscular Hemoglobin 31.3 pg (28.0-32.0); Mean Corpuscular Hgb Conc. 33.8 g/dL (32.0-36.0); Mean Corpuscular Volume 92.7 fL (80.0-100.0); Monocytes # (auto) 0.5 10 ^3/uL (0-1.3); Monocytes % (auto) 8.7 % (0.0-12.0); Neutrophils % (auto) 57.6 % (37.0-80.0); Nucleated Red Blood Cells % 0.1 %; Platelet Count (auto) 166 10^3/uL (140-450); Red Blood Cells 3.93 10^6/uL (4.5-5.90); Red Cell Distribution Width 13.5 % (11.8-14.3); White Blood Cell 5.3 10^3/uL (4.4-10.8)
[2020-07-04 11:01] LABS: INR 1.17 (0.9-1.15); Partial Thromboplastin Time 30.8 sec (23.0-31.2)
== END | disposition home or self-care (01) ==
LOC: LAB 10:30
DX: K70.31 Alcoholic cirrhosis of liver with ascites (principal)
CPT/HCPCS: 36415; 85025; 85610; 85730

== ENCOUNTER → 2020-07-06 | Outpatient (CLI) | payer OTHER | END | disposition home or self-care (01) | LOC: US 08:33 | DX: R18.8 Other ascites (principal); I11.0 Hypertensive heart disease with heart failure; F28 Other psychotic disorder not due to a substance or known physiological condition; Z98.890 Other specified postprocedural states; Z79.899 Other long term (current) drug therapy | CPT/HCPCS: 49083; 76700; C1729; 76942 ==

== ENCOUNTER → 2020-08-31 | Outpatient (CLI) | payer OTHER | END | disposition home or self-care (01) | LOC: US 10:47 | DX: R18.8 Other ascites (principal); I50.9 Heart failure, unspecified; F99 Mental disorder, not otherwise specified; Z98.890 Other specified postprocedural states; Z79.899 Other long term (current) drug therapy | CPT/HCPCS: 49083; 76700; C1729; 76942 ==

== ENCOUNTER 2020-10-03 10:57 | Emergency (ER) | payer OTHER ==
[~2020-10-03] VITALS: Ht 177.8 cm; Wt 74.4 kg
[2020-10-03 11:35] LABS: Basophils # (auto) 0.1 10 ^3/uL (0-0.2); Eosinophils # (auto) 0.1 10 ^3/uL (0-0.8); Eosinophils % (auto) 1.6 % (0.0-7.0); Hematocrit 37.5 % (41.0-53.0); Hemoglobin 12.8 g/dL (13.5-17.5); Lymphocytes # (auto) 1.3 10 ^3/uL (0.4-5.4); Mean Corpuscular Hgb Conc. 34.2 g/dL (32.0-36.0); Mean Corpuscular Volume 90.8 fL (80.0-100.0); Monocytes # (auto) 0.5 10 ^3/uL (0-1.3); Monocytes % (auto) 8.9 % (0.0-12.0); Neutrophils # (auto) 3.2 10 ^3/uL (1.6-8.6); Neutrophils % (auto) 63.5 % (37.0-80.0); Nucleated Red Blood Cells % 0.1 %; Red Blood Cells 4.14 10^6/uL (4.5-5.90); Red Cell Distribution Width 13.1 % (11.8-14.3); White Blood Cell 5.1 10^3/uL (4.4-10.8)
[2020-10-03 11:50] LABS: INR 1.19 (0.9-1.15); Partial Thromboplastin Time 30.2 sec (23.0-31.2)
[2020-10-03 12:00] LABS: Potassium 4.3 mmol/L (3.5-5.1)
[2020-10-03 12:05] LABS: BUN/Creatinine Ratio 18.8; Bilirubin, Total 0.6 mg/dL (0.2-1.0); Total Protein 7.4 g/dL (6.4-8.2)
[2020-10-03 18:30] VITALS: BP 101/58
== END 2020-10-03 18:52 | disposition home or self-care (01) ==
LOC: ER 10:57
DX: K74.60 Unspecified cirrhosis of liver (principal); R18.8 Other ascites; E11.9 Type 2 diabetes mellitus without complications; I50.9 Heart failure, unspecified
CPT/HCPCS: 36415; 49083; 76700; 76942; 80053; 85025; 85610; 85730; 99285; C1729

== ENCOUNTER 2020-10-05 10:21 | Inpatient (IN) | payer OTHER ==
[~2020-10-05] VITALS: Ht 177.8 cm; Wt 59.6 kg
[2020-10-05 13:38] LABS: Basophils # (auto) 0 10 ^3/uL (0-0.2); Basophils % (auto) 0.4 % (0.0-2.0); Eosinophils # (auto) 0.1 10 ^3/uL (0-0.8); Eosinophils % (auto) 1.9 % (0.0-7.0); Hematocrit 39.6 % (41.0-53.0); Hemoglobin 13.7 g/dL (13.5-17.5); Lymphocytes # (auto) 1.7 10 ^3/uL (0.4-5.4); Mean Corpuscular Hemoglobin 30.7 pg (28.0-32.0); Mean Corpuscular Hgb Conc. 34.5 g/dL (32.0-36.0); Mean Corpuscular Volume 89.1 fL (80.0-100.0); Monocytes # (auto) 0.5 10 ^3/uL (0-1.3); Neutrophils # (auto) 3.5 10 ^3/uL (1.6-8.6); Neutrophils % (auto) 60.7 % (37.0-80.0); Nucleated Red Blood Cells % 0.2 %; Red Blood Cells 4.44 10^6/uL (4.5-5.90); White Blood Cell 5.8 10^3/uL (4.4-10.8)
[2020-10-05 13:44] LABS: INR 1.23 (0.9-1.15); Partial Thromboplastin Time 31.6 sec (23.0-31.2)
[2020-10-05 13:47] LABS: Albumin 2.8 g/dL (3.4-5.0); BUN/Creatinine Ratio 26.2; Calcium 8.2 mg/dL (8.5-10.1)
[2020-10-05 13:50] LABS: Bilirubin, Total 0.5 mg/dL (0.2-1.0); Total Protein 6.9 g/dL (6.4-8.2)
[2020-10-05] MEDS ORDERED: HYDROcodone-ACET 5/325MG TAB PO PRN (15:45)
[2020-10-05] MEDS ORDERED: ONDANSETRON HCL 4 MG/2 ML VIAL IV PRN (15:45)
[2020-10-05] MEDS ORDERED: ACETAMINOPHEN 500 MG TAB PO PRN (15:45)
[2020-10-05] MEDS ORDERED: NITROGLYCERIN 0.4 MG SL TAB SL PRN (15:45)
[2020-10-05] MEDS ORDERED: MORPHINE SULFATE INJECTION 2 MG/ML SYRG IV PRN ×2 (15:45)
[2020-10-05 17:57] VITALS: BP 108/74
[2020-10-05] MEDS: PROPRANOLOL HCL 20 MG TAB PO SCH (21:22)
[2020-10-05 22:00] VITALS: BP 100/65
[2020-10-05] MEDS ORDERED: ATORVASTATIN 20 MG TAB PO SCH (22:00)
[2020-10-06 05:00] VITALS: BP 91/58
[2020-10-06] MEDS ORDERED: glipiZIDE 5 MG TAB PO SCH (08:00)
[2020-10-06] MEDS: PROPRANOLOL HCL 20 MG TAB PO SCH (08:25)
[2020-10-06 09:00] VITALS: BP 100/61
[2020-10-06] MEDS ORDERED: FUROSEMIDE 40 MG TAB PO SCH (10:00)
[2020-10-06] MEDS ORDERED: FOLIC ACID 1 MG TAB PO SCH (10:00)
[2020-10-06 13:00] VITALS: BP 89/55
[2020-10-06 13:56] LABS: Hematocrit 36.2 % (41.0-53.0); Hemoglobin 12.7 g/dL (13.5-17.5)
[2020-10-06] MEDS ORDERED: FURO40TA4 PO (14:01)
[2020-10-06 16:10] VITALS: BP 100/61
== END 2020-10-06 17:05 | disposition home or self-care (01) | DRG 254 ==
LOC: ER 10:21 → EDBD 10:21 → OVERFLOW 15:31 → WEST WING 17:48
PROVIDERS: ADMIT Nurse Practitioner Acute Care; ATTEND Internal Medicine
DX: K42.9 Umbilical hernia without obstruction or gangrene (principal); E44.0 Moderate protein-calorie malnutrition; K70.31 Alcoholic cirrhosis of liver with ascites; L98.499 Non-pressure chronic ulcer of skin of other sites with unspecified severity; I10 Essential (primary) hypertension; N20.0 Calculus of kidney; S31.115A Laceration without foreign body of abdominal wall, periumbilic region without penetration into peritoneal cavity, initial encounter; E11.9 Type 2 diabetes mellitus without complications; E78.5 Hyperlipidemia, unspecified; K80.20 Calculus of gallbladder without cholecystitis without obstruction; Z20.822 Contact with and (suspected) exposure to COVID-19; Z83.3 Family history of diabetes mellitus; Z79.899 Other long term (current) drug therapy; Y93.89 Activity, other specified; Y92.89 Other specified places as the place of occurrence of the external cause; Y99.8 Other external cause status
CPT/HCPCS: 36415; 74176; 80053; 82962; 83735; 85014; 85018; 85025; 85610; 85730; 87426; G0378

== ENCOUNTER 2020-10-15 19:16 | Inpatient (IN) | payer OTHER ==
[~2020-10-15] VITALS: Ht 177.8 cm; Wt 64.8 kg
[2020-10-15 22:06] LABS: Basophils # (auto) 0 10 ^3/uL (0-0.2); Basophils % (auto) 0.2 % (0.0-2.0); Eosinophils # (auto) 0 10 ^3/uL (0-0.8); Hematocrit 36.7 % (41.0-53.0); Hemoglobin 12.5 g/dL (13.5-17.5); Lymphocytes # (auto) 0.7 10 ^3/uL (0.4-5.4); Lymphocytes % (auto) 7.5 % (10.0-50.0); Mean Corpuscular Hemoglobin 30.7 pg (28.0-32.0); Mean Corpuscular Volume 90.5 fL (80.0-100.0); Monocytes # (auto) 0.4 10 ^3/uL (0-1.3); Monocytes % (auto) 4.3 % (0.0-12.0); Neutrophils # (auto) 7.9 10 ^3/uL (1.6-8.6); Red Blood Cells 4.05 10^6/uL (4.5-5.90); Red Cell Distribution Width 13.2 % (11.8-14.3); White Blood Cell 8.9 10^3/uL (4.4-10.8)
[2020-10-15] MEDS ORDERED: MORPHINE SULFATE 4 MG/ML SYR/VIAL IV ONE (22:15)
[2020-10-15] MEDS ORDERED: PANTOPRAZOLE 40 MG/10 ML VIAL INJ IV ONE (22:15)
[2020-10-15] MEDS ORDERED: ONDANSETRON HCL 4 MG/2 ML VIAL IV ONE ×2 (22:15)
[2020-10-15] MEDS ORDERED: SODIUM CHLORIDE 0.9% 500 ML IV ONE (22:15)
[2020-10-15 22:30] LABS: Albumin 2.8 g/dL (3.4-5.0); Amylase 31 U/L (25-115); Anion Gap 5 (5-15); Blood Urea Nitrogen 19 mg/dL (7-18); Calcium 8.9 mg/dL (8.5-10.1); Carbon Dioxide 26 mmol/L (21-32); Chloride 108 mmol/L (98-107); Glucose 213 mg/dL (74-106); Lipase 78 U/L (73-393); Magnesium 2.1 mg/dL (1.6-2.6); Potassium 4.2 mmol/L (3.5-5.1); Sodium 139 mmol/L (136-145)
[2020-10-15 22:36] LABS: Alanine Aminotransferase 31 U/L (16-61); Alkaline Phosphatase 191 U/L (45-117); Aspartate Aminotransferase 24 U/L (15-37); BUN/Creatinine Ratio 22.9; Bilirubin, Total 0.6 mg/dL (0.2-1.0); GFR African American 127 mL/min; GFR Non-African American 105 mL/min; Total Protein 7.4 g/dL (6.4-8.2)
[2020-10-16] MEDS ORDERED: CEFTRIAXONE SODIUM 2 GM in D5W 5% 50 ML IV ONE (01:00)
[2020-10-16] MEDS ORDERED: LIDOCAINE 1% HCL (LOCAL ANESTH.) INJ 20ML MDV ID ONE (01:15)
[2020-10-16] MEDS ORDERED: HYDROmorphone HCL 2 MG/ML VL IV ONE (02:15)
[2020-10-16] MEDS ORDERED: cefTRIAXone SOD 1,000 MG VL ONE (04:01)
[2020-10-16] MEDS ORDERED: levETIRAcetam 500 MG/5ML INJ IV ONE (04:24)
[2020-10-16] MEDS ORDERED: NITROGLYCERIN 0.4 MG SL TAB SL PRN (06:30)
[2020-10-16] MEDS ORDERED: MORPHINE SULF INJ 2 MG/ML SYRINGE 1ML IV PRN (06:30)
[2020-10-16] MEDS ORDERED: MORPHINE SULFATE 4 MG/ML SYR/VIAL IV PRN (06:30)
[2020-10-16] MEDS ORDERED: ONDANSETRON HCL 4 MG/2 ML VIAL IV PRN (06:30)
[2020-10-16] MEDS ORDERED: DEXTROSE (50%) 50ML SYRG IV PRN (06:30)
[2020-10-16] MEDS ORDERED: DOCUSATE SOD 100 MG CAP PO PRN (06:30)
[2020-10-16] MEDS ORDERED: IBUPROFEN 400 MG TAB PO PRN (07:00)
[2020-10-16] MEDS: InsuLIN REG 1unit/0.01ml Soln (100units/ml) SC SCH ×4 (07:23→22:00)
[2020-10-16] MEDS: ACCU-CHEK COMFORT CURVE STRIP VI SCH ×4 (07:23→22:10)
[2020-10-16 07:26] LABS: Basophils # (auto) 0 10 ^3/uL (0-0.2); Basophils % (auto) 0.1 % (0.0-2.0); Eosinophils # (auto) 0 10 ^3/uL (0-0.8); Hematocrit 33.9 % (41.0-53.0); Hemoglobin 11.6 g/dL (13.5-17.5); Lymphocytes # (auto) 0.9 10 ^3/uL (0.4-5.4); Lymphocytes % (auto) 9.4 % (10.0-50.0); Mean Corpuscular Hgb Conc. 34.2 g/dL (32.0-36.0); Mean Corpuscular Volume 90.5 fL (80.0-100.0); Monocytes # (auto) 0.5 10 ^3/uL (0-1.3); Monocytes % (auto) 5.4 % (0.0-12.0); Neutrophils # (auto) 8.2 10 ^3/uL (1.6-8.6); Neutrophils % (auto) 85.1 % (37.0-80.0); Nucleated Red Blood Cells % 0.1 %; Red Blood Cells 3.74 10^6/uL (4.5-5.90); Red Cell Distribution Width 13.1 % (11.8-14.3); White Blood Cell 9.6 10^3/uL (4.4-10.8)
[2020-10-16] MEDS: ASCORBIC ACID 500 MG TAB PO SCH ×2 (10:08→22:09)
[2020-10-16] MEDS: MULTIPLE VITAMIN TAB PO SCH (10:08)
[2020-10-16] MEDS: FAMOTIDINE (10MG/ML) 2ML VL IV SCH ×2 (10:09→22:07)
[2020-10-16] MEDS: ZINC SULFATE 220mg CAP or TAB PO SCH (10:13)
[2020-10-16] MEDS ORDERED: SODIUM CHLORIDE 0.9% 500 ML IV ONE (12:45)
[2020-10-16] MEDS: SODIUM CHLOR 0.9% PF (SALINE LOCK) 10ML VIAL/SYR IV SCH ×2 (12:58→22:07)
[2020-10-16 16:00] VITALS: BP 102/44
[2020-10-16 17:01] VITALS: BP 102/44
[2020-10-16] MEDS: Glucerna Carbsteady SHAKE Vanilla 8oz PO SCH (18:00)
[2020-10-16 20:00] VITALS: BP 94/69
[2020-10-16 22:00] VITALS: BP 94/69
[2020-10-16] MEDS: PROPRANOLOL HCL 20 MG TAB PO SCH (22:08)
[2020-10-16] MEDS: ATORVASTATIN 20 MG TAB PO SCH (22:09)
[2020-10-17] VITALS (7 sets, daily range): BP systolic 84–108; BP diastolic 44–59
[2020-10-17 05:43] LABS: Basophils # (auto) 0 10 ^3/uL (0-0.2); Basophils % (auto) 0.5 % (0.0-2.0); Eosinophils # (auto) 0.1 10 ^3/uL (0-0.8); Eosinophils % (auto) 2.1 % (0.0-7.0); Hematocrit 32.6 % (41.0-53.0); Hemoglobin 11.2 g/dL (13.5-17.5); Lymphocytes # (auto) 2.1 10 ^3/uL (0.4-5.4); Mean Corpuscular Hemoglobin 31.4 pg (28.0-32.0); Mean Corpuscular Hgb Conc. 34.3 g/dL (32.0-36.0); Mean Corpuscular Volume 91.5 fL (80.0-100.0); Monocytes # (auto) 0.5 10 ^3/uL (0-1.3); Monocytes % (auto) 7.6 % (0.0-12.0); Neutrophils # (auto) 3.3 10 ^3/uL (1.6-8.6); Neutrophils % (auto) 54.8 % (37.0-80.0); Red Blood Cells 3.57 10^6/uL (4.5-5.90); Red Cell Distribution Width 13.3 % (11.8-14.3)
[2020-10-17 06:07] LABS: Potassium 4.1 mmol/L (3.5-5.1)
[2020-10-17 06:18] LABS: Albumin 2.2 g/dL (3.4-5.0); BUN/Creatinine Ratio 23.7; Bilirubin, Total 0.5 mg/dL (0.2-1.0); Calcium 7.9 mg/dL (8.5-10.1); Total Protein 5.8 g/dL (6.4-8.2)
[2020-10-17] MEDS: InsuLIN REG 1unit/0.01ml Soln (100units/ml) SC SCH ×4 (06:52→22:18)
[2020-10-17] MEDS: glipiZIDE 5 MG TAB PO SCH (06:56)
[2020-10-17] MEDS: ACCU-CHEK COMFORT CURVE STRIP VI SCH ×4 (06:56→22:15)
[2020-10-17] MEDS: SODIUM CHLOR 0.9% PF (SALINE LOCK) 10ML VIAL/SYR IV SCH ×3 (06:57→22:04)
[2020-10-17] MEDS: Glucerna Carbsteady SHAKE Vanilla 8oz PO SCH ×3 (08:00→18:01)
[2020-10-17] MEDS ORDERED: cefTRIAXone 1GM/50ML D5W 50 ML IV SCH (09:00)
[2020-10-17 09:52] LABS: INR 1.23 (0.9-1.15); Partial Thromboplastin Time 29.3 sec (23.0-31.2)
[2020-10-17] MEDS: FUROSEMIDE 40 MG TAB PO SCH (10:00)
[2020-10-17] MEDS: PROPRANOLOL HCL 20 MG TAB PO SCH ×2 (10:00→22:03)
[2020-10-17] MEDS: SPIRONOLACTONE 25 MG TAB PO SCH (10:00)
[2020-10-17] MEDS: FAMOTIDINE (10MG/ML) 2ML VL IV SCH ×2 (10:23→22:02)
[2020-10-17] MEDS: ZINC SULFATE 220mg CAP or TAB PO SCH (10:23)
[2020-10-17] MEDS: ASCORBIC ACID 500 MG TAB PO SCH ×2 (10:24→22:02)
[2020-10-17] MEDS: B-COMPLEX W/ C & FOLIC ACID(NEPHROVITE TAB) PO SCH (10:24)
[2020-10-17] MEDS: MULTIPLE VITAMIN TAB PO SCH (10:24)
[2020-10-17] MEDS ORDERED: SODIUM CHLORIDE 0.9% 500 ML IV ONE (11:15)
[2020-10-17] MEDS: ATORVASTATIN 20 MG TAB PO SCH (22:02)
[2020-10-18 05:30] VITALS: BP 109/62
[2020-10-18] MEDS: SODIUM CHLOR 0.9% PF (SALINE LOCK) 10ML VIAL/SYR IV SCH ×2 (06:10→15:39)
[2020-10-18] MEDS: ACCU-CHEK COMFORT CURVE STRIP VI SCH ×2 (06:31→12:05)
[2020-10-18] MEDS: InsuLIN REG 1unit/0.01ml Soln (100units/ml) SC SCH ×2 (06:36→11:30)
[2020-10-18] MEDS: glipiZIDE 5 MG TAB PO SCH (07:00)
[2020-10-18] MEDS: Glucerna Carbsteady SHAKE Vanilla 8oz PO SCH ×2 (08:00→12:00)
[2020-10-18 09:00] VITALS: BP 110/50
[2020-10-18] MEDS: PROPRANOLOL HCL 20 MG TAB PO SCH (09:51)
[2020-10-18] MEDS: ZINC SULFATE 220mg CAP or TAB PO SCH (09:51)
[2020-10-18] MEDS: SPIRONOLACTONE 25 MG TAB PO SCH (09:51)
[2020-10-18] MEDS: FUROSEMIDE 40 MG TAB PO SCH (09:52)
[2020-10-18] MEDS: ASCORBIC ACID 500 MG TAB PO SCH (09:52)
[2020-10-18] MEDS: B-COMPLEX W/ C & FOLIC ACID(NEPHROVITE TAB) PO SCH (09:52)
[2020-10-18] MEDS: MULTIPLE VITAMIN TAB PO SCH (09:52)
[2020-10-18] MEDS: FAMOTIDINE (10MG/ML) 2ML VL IV SCH (10:23)
[2020-10-18] MEDS ORDERED: DEXTROSE (50%) 50ML SYRG IV PRN (12:30)
[2020-10-18 13:00] VITALS: BP 95/55
[2020-10-18] MEDS ORDERED: InsuLIN REG 1unit/0.01ml Soln (100units/ml) SC SCH (17:00)
[2020-10-18] MEDS ORDERED: ACCU-CHEK COMFORT CURVE STRIP VI SCH (17:00)
== END 2020-10-18 17:40 | disposition home health service (06) | DRG 280 ==
LOC: EDUNIT# 19:49 → EDBD 19:54 → ER 19:59 → TELE 10-16 06:34 → TELE-WESTW 10-16 15:42
PROVIDERS: ADMIT Nurse Practitioner Family; ATTEND Internal Medicine
PROC: 0W9G3ZZ Drainage of Peritoneal Cavity, Percutaneous Approach (ICD-10-PCS; principal; 2020-10-18)
DX: K70.31 Alcoholic cirrhosis of liver with ascites (principal); I95.9 Hypotension, unspecified; E44.0 Moderate protein-calorie malnutrition; E11.65 Type 2 diabetes mellitus with hyperglycemia; E88.09 Other disorders of plasma-protein metabolism, not elsewhere classified; K42.0 Umbilical hernia with obstruction, without gangrene; I10 Essential (primary) hypertension; D63.8 Anemia in other chronic diseases classified elsewhere; K59.00 Constipation, unspecified; Z83.3 Family history of diabetes mellitus
CPT/HCPCS: 36415; 49083; 74176; 76700; 76942; 80053; 82140; 82150; 82962; 83036; 83605; 83690; 83735; 83986; 84443; 84484; 85025; 85610; 85730; 87040; 87081; 87205; 87426; 89051; 96365; 96375; C9113; G0378; J0696; J1815; J2001; J3490; J7060

== ENCOUNTER 2020-11-29 09:41 | Emergency (ER) | payer OTHER ==
[~2020-11-29] VITALS: Ht 177.8 cm; Wt 65.8 kg
[2020-11-29 09:41] VITALS: BP 114/70
[2020-11-29 10:20] LABS: Basophils # (auto) 0 10 ^3/uL (0-0.2); Basophils % (auto) 0.4 % (0.0-2.0); Eosinophils # (auto) 0.1 10 ^3/uL (0-0.8); Eosinophils % (auto) 2.5 % (0.0-7.0); Hematocrit 35.1 % (41.0-53.0); Hemoglobin 11.9 g/dL (13.5-17.5); Lymphocytes # (auto) 1.8 10 ^3/uL (0.4-5.4); Lymphocytes % (auto) 30.3 % (10.0-50.0); Mean Corpuscular Hemoglobin 30.4 pg (28.0-32.0); Mean Corpuscular Volume 89.4 fL (80.0-100.0); Monocytes # (auto) 0.5 10 ^3/uL (0-1.3); Monocytes % (auto) 8.1 % (0.0-12.0); Neutrophils # (auto) 3.5 10 ^3/uL (1.6-8.6); Neutrophils % (auto) 58.7 % (37.0-80.0); Red Blood Cells 3.93 10^6/uL (4.5-5.90); Red Cell Distribution Width 13.6 % (11.8-14.3); White Blood Cell 5.9 10^3/uL (4.4-10.8)
[2020-11-29 10:50] LABS: INR 1.18 (0.9-1.15); Partial Thromboplastin Time 30.9 sec (23.6-33.0)
[2020-11-29 10:52] LABS: Albumin 2.6 g/dL (3.4-5.0); Anion Gap 8 (5-15); Blood Urea Nitrogen 13 mg/dL (7-18); Calcium 8.7 mg/dL (8.5-10.1); Carbon Dioxide 26 mmol/L (21-32); Chloride 104 mmol/L (98-107); Glucose 177 mg/dL (74-106); Potassium 4.2 mmol/L (3.5-5.1); Sodium 138 mmol/L (136-145)
[2020-11-29 10:57] LABS: Alanine Aminotransferase 21 U/L (16-61); Alkaline Phosphatase 179 U/L (45-117); Aspartate Aminotransferase 17 U/L (15-37); BUN/Creatinine Ratio 18.8; Bilirubin, Total 0.5 mg/dL (0.2-1.0); GFR African American 157 mL/min; GFR Non-African American 130 mL/min; Total Protein 6.6 g/dL (6.4-8.2)
== END 2020-11-29 14:44 | disposition left against medical advice (07) ==
LOC: ER 09:41
DX: R18.8 Other ascites (principal); K74.60 Unspecified cirrhosis of liver; E11.9 Type 2 diabetes mellitus without complications; Z79.899 Other long term (current) drug therapy
CPT/HCPCS: 36415; 80053; 84484; 85025; 85610; 85730

== ENCOUNTER → 2020-11-30 | Outpatient (CLI) | payer OTHER | END | disposition home or self-care (01) | LOC: XYW 09:12 | DX: R18.8 Other ascites (principal); I50.9 Heart failure, unspecified; Z98.890 Other specified postprocedural states; Z79.899 Other long term (current) drug therapy | CPT/HCPCS: 49083; 76700; C1729; 76942 ==